=== PATIENT | male | born 1970 | race Hispanic/Latino ===

== ENCOUNTER 2025-04-19 09:41 | Emergency (ER) | payer BC ==
[~2025-04-19] VITALS: Ht 157.5 cm; Wt 81.6 kg
--- NOTE | 2025-04-19 10:11 | ERN ---
ED Note History of Present Illness Stated Complaint: ABD PAIN, NAUSEA, DIARRHEA Chief Complaint: Abdominal Pain Time Seen by MD: 09:57 Dictation: Patient is a 55-year-old male coming in today with complaints of periumbilical right lower quadrant pain tenderness with nausea onset yesterday. He has also had fever chills. No change in urination no flank pain no chest pain no back pain no SOB. States he went to a local urgent care to be seen today however it was too busy and came to the emergency room instead. No primary care doctor and denies any chronic comorbidities. He has not taken anything today prior to arrival for pain or fever Allergies: Coded Allergies: No Known Allergies (Unverified Allergy, Unknown, 04/19/25) Past Medical History Past Medical History: No Pertinent History Surgical History: None RN Note Reviewed/Agreed w/PFSH: Yes Review of System Dictation CONSTITUTIONAL: Negative except for HPI fever chills HEAD/FACE: Negative except for HPI EENT: Negative except for HPI RESPIRATORY: Negative except for HPI GASTROINTESTINAL/ABDOMINAL: Negative except for HPI periumbilical and right lower quadrant pain tenderness GENITOURINARY: Negative except for HPI MUSCULOSKELETAL: Negative except for HPI INTEGUMENTARY: Negative except for HPI NEUROLOGICAL/PSYCH: Negative except for HPI HEMATOLOGIC/LYMPHATIC: Negative except for HPI All Systems Negative, Except as noted above. 13 point review of systems assessed and all negative except for above. Initial Vital Sign VS Vital Signs Date Time Temp Pulse Resp B/P (MAP) Pulse Ox O2 Delivery O2 Flow Rate FiO2 04/19/25 09:43 101.5 112 20 131/79 95 Room Air 0 04/19/25 10:25 21 Physical Exam Dictation Vital Signs reviewed General Appearance: Alert, oriented x 3, monitor acute distress, well developed, nourished. Head and Face: non-traumatic. Eyes: PERRL, pink conjunctivas, eyelid no trauma, anterior chamber with arcus senilis. Ears: Pinnas intact and no signs of trauma or erythema ear canals clear and no discharge TM no erythema Nose: No discharge, no bleeding. Oropharynx: Mouth normal, tongue pink, pharynx clear,no erythema, tonsils no exudates, no abscesses noted, mucous membrane moist Neck: Supple, non-tender, no thyromegaly, no masses, no JVD, no bruits Breast:Deferred Chest:No tenderness, no crepitus, no paradoxical movement, no retractions Lungs:Clear, well-ventilated, symmetric, no rales, no wheezing, no rhonchi, no stridor, good breath sounds bilaterally Heart: Regular rate, regular rhythm, no murmur, no gallops Vascular: no peripheral edema, Abdomen: Soft, hypoactive bowel sounds with periumbilical right lower quadrant pain tenderness with palpation mild rebound to right lower quadrant. Negative CVAT bilaterally Rectal: Deferred Genital: Deferred Neurological: Normal speech, motor function intact, sensory function intact Musculoskeletal: Neck nontender, full range of motion, back nontender, full range of motion, Extremities: nontender, full range of motion Skin: Color pink, dry, no turgor, no rash, no lacerations, no abrasions, no contusions. Lymphatic: Deferred Results (Laboratory/Radiology) Laboratory/Radiology Laboratory Tests Test 04/19/25 10:00 White Blood Count 12.2 K/uL (4.8-10.8) H Red Blood Count 4.94 MIL/uL (4.50-6.20) Hemoglobin 14.9 g/dL (14.0-18.0) Hematocrit 43.7 % (42-54) Mean Corpuscular Volume 88.5 fL (79-99) Mean Corpuscular Hemoglobin 30.2 pg (27.0-33.0) Mean Corpuscular Hemoglobin Concent 34.1 g/dL (32.0-36.0) Red Cell Distribution Width 13.2 % (11.0-15.5) Platelet Count 218 K/uL (130-400) Mean Platelet Volume 11.2 fL (7.5-10.5) H Immature Granulocyte % (Auto) 0.6 % (0-1) Neutrophils (%) (Auto) 89.7 % (40.0-77.0) H Lymphocytes (%) (Auto) 5.3 % (21.0-51.0) L Monocytes (%) (Auto) 4.2 % (3.0-13.0) Eosinophils (%) (Auto) 0.0 % (0.0-8.0) Basophils (%) (Auto) 0.2 % (0.0-5.0) Neutrophils # (Auto) 10.9 K/uL (1.8-7.7) H Lymphocytes # (Auto) 0.6 K/uL (1.0-4.8) L Monocytes # (Auto) 0.5 K/uL (0.1-1.0) Eosinophils # (Auto) 0.00 K/uL (0.00-0.70) Basophils # (Auto) 0.02 K/uL (0.00-0.20) Absolute Immature Granulocyte (auto 0.07 K/uL (0-1) Nucleated Red Blood Cells 0.0 % (0.0-0.19) White Cell Morphology Comment See comments Sodium Level 138 mmol/L (136-145) Potassium Level 3.3 mmol/L (3.5-5.1) L Chloride Level 105 mmol/L (101-111) Carbon Dioxide Level 23 mmol/L (21-32) Blood Urea Nitrogen 9 mg/dL (7-18) Creatinine 0.8 mg/dL (0.5-1.3) Glomerular Filtration Rate Calc 104 mL/min (>90) Random Glucose 126 mg/dL (70-105) H Lactic Acid Level 1.7 mmol/L (0.8-2.5) Total Calcium 8.8 mg/dL (8.5-10.1) Lipase 25 U/L (16-77) IMAGING REPORT Signed PATIENT: HUMBERTO CONNOR MR#: [id number] : 1970 SEX: M AGE: 55 LOCATION: [facility] ORDER 1004 STATUS: REG REPORT#: [id number] SERVICE 1000 REASON: RLQ PAIN/TENDERNESS. FEVER ORDERING PHYSICIAN: NGUYEN WOLF NP PROCEDURE: ABD PEL W - CT ABDOMEN/PELVIS W/CONTRAST EXAM: CT Abdomen and Pelvis with IV contrast CLINICAL HISTORY: RLQ PAIN/TENDERNESS. FEVER TECHNIQUE: Axial computed tomography images of the abdomen and pelvis with intravenous contrast. CONTRAST: with intravenous contrast. COMPARISON: None provided. FINDINGS: LUNG BASES: The lung bases appear clear. No pleural effusions are seen. LIVER: Liver appears enlarged (16.2 cm) and diffusely hypodense, consistent with fatty infiltration. Unremarkable. GALLBLADDER AND BILE DUCTS: The gallbladder appears within normal limits. No radioopaque gallstones are seen. No biliary ductal dilatation is evident. PANCREAS: Unremarkable. SPLEEN: Unremarkable. ADRENAL GLANDS: Approximately 1.3 x 1.3 cm sized heterogenously enhancing lesion with internal fat and soft tissue density is seen in the stem of the right adrenal gland, possibility of adrenal myelolipoma appears likely. KIDNEYS, URETERS, AND BLADDER: Few small cortical cysts are seen in right kidney. The kidneys appear within normal limits. There is no hydronephrosis or hydroureter. No urinary calculi are seen. STOMACH AND BOWEL: The wall of the caecum, ascending colon and part of the transverse colon appears thickened and oedematous, measuring approximately 9-10 mm, consistent with colitis. Unremarkable appearance of the stomach. No evidence of bowel obstruction. APPENDIX: Normal appendix. PERITONEUM: No free fluid. No free air. LYMPH NODES: No lymphadenopathy is evident. REPRODUCTIVE: Marked prostatomegaly with heterogeneous enhancement (68 cc). Unremarkable as visualized. VASCULATURE: No evidence of abdominal aortic aneurysm. BONES: No aggressive appearing osseous lesion. No acute osseous pathology evident. IMPRESSION: 1. Thickened and edematous wall of cecum, ascending colon and part of transverse colon (9-10 mm), consistent with colitis. 2. Marked prostatomegaly (68 cc) with heterogeneous enhancement. 3. Fatty liver. /[facility] Labs Reviewed?: Yes ED Course ED Course Orders Procedure Category Date Status Time Cbc With Differential LAB 04/19/25 Complete 10:00 Blood Cult RAFFI 04/19/25 In Process 10:00 Urinalysis Profile LAB 04/19/25 Logged 10:00 Lactic Acid LAB 04/19/25 Complete 10:00 Basic Metabolic Panel LAB 04/19/25 Complete 10:00 Ct Abdomen/Pelvis CT 04/19/25 Resulted W/Contrast 10:00 0.9%Nacl 1000ml (Ns PHA 04/19/25 Complete 1000ml) 10:00 Morphine 2mg Syg PHA 04/19/25 Complete (Morphine 2mg Syg) 10:00 Ondansetron 4mg Inj PHA 04/19/25 Complete (Zofran 4mg Inj) 10:00 Lipase LAB 04/19/25 Complete 10:00 Potassium Bicarb/Cit PHA 04/19/25 Complete Ac 25meq (K-Lyte Ta 11:00 Iohexol (Omnipaque) PHA 04/19/25 Complete 11:05 Acetaminophen 500mg PHA 04/19/25 Complete Tab (Tylenol 500mg T 12:00 Zosyn 3.375gm+Ns 50ml PHA 04/19/25 Complete (Zosyn 3.375gm+Ns 12:30 Levofloxacin 500mg PHA 04/19/25 In Process Tab (Levaquin 500mg T 12:30 Metronidazole (Flagyl) PHA 04/19/25 Logged 12:30 Current Medications Medications (Trade) Dose Ordered Sig/Killian Route PRN Reason Start Time Stop Time Status Last Admin Dose Admin Acetaminophen (TYLenol 500MG TAB) 1,000 mg ONCE ONCE PO 04/19/25 12:00 04/19/25 12:01 DC Iohexol (Omnipaque) 75 ml STK-MED ONCE IV 04/19/25 11:05 04/19/25 11:05 DC Levofloxacin (LEvaquIN 500MG TAB) 500 mg ONCE PO 04/19/25 12:30 04/29/25 12:29 UNV Metronidazole (flaGYL) 500 mg ONCE PO 04/19/25 12:30 04/29/25 12:29 UNV Morphine Sulfate (morPHINE 2MG SYG) 2 mg ONCE ONCE IVP 04/19/25 10:00 04/19/25 10:10 DC 04/19/25 10:13 Ondansetron HCl (zoFRAN 4MG INJ) 4 mg ONCE ONCE IVP 04/19/25 10:00 04/19/25 10:10 DC 04/19/25 10:13 Piperacillin Sod/ Tazobactam Sod (Zosyn 3.375gm+NS 50ml) 3.375 gm ONCE ONCE IVPB 04/19/25 12:30 04/19/25 12:15 DC Potassium Bicarbonate (K-Lyte Tablet Eff 25 Meq Tablet.eff) 25 meq ONCE ONCE PO 04/19/25 11:00 04/19/25 11:01 DC 04/19/25 10:56 Sodium Chloride 1,000 ml @ 0 mls/hr ONCE ONCE IV 04/19/25 10:00 04/19/25 10:10 DC 04/19/25 10:13 Vital Signs Date Time Temp Pulse Resp B/P (MAP) Pulse Ox O2 Delivery O2 Flow Rate FiO2 04/19/25 11:41 101.7 93 12 119/66 97 Room Air* 0 21 04/19/25 10:25 102.4 108 19 118/80 96 Room Air* 0 21 04/19/25 09:43 101.5 112 20 131/79 95 Room Air 0 1215/SPOKE WITH PATIENT IN HIS DAUGHTER AT LENGTH AT BEDSIDE REGARDING TREATMENT PLAN. I ADVISED HIM I WOULD LIKE TO PUT HIM IN THE HOSPITAL IV ANTIBIOTICS HOWEVER HE STATES HE DOES NOT WANT TO STAY AND WISHES TO GO HOME. I GAVE HIM DIETARY GUIDELINES WE WILL GIVE HIM LEVAQUIN AND METRONIDAZOLE PRIOR TO DISCHARGED HOME HE WAS ADVISED TO BE ON CLEAR LIQUID DIET FOR THE NEXT 24 HOURS. FOLLOW UP WITH HIS PRIMARY CARE DOCTOR. Medical Decision Making MDM MDM: DIFFERENTIAL DIAGNOSIS: APPENDICITIS/DIVERTICULITIS/COLITIS/HER LUL/UTI/ELECTROLYTE IMBALANCE/DEHYDRATION/ RATIONALE: TESTS CONSIDERED AND ORDERED SECONDARY TO SHARED DECISION MAKING INCLUDE: SEPSIS LABS/RADIOLOGY PREVIOUS OUTSIDE RECORDS REVIEWED: OLD ER VISITS. RISK OF COMPLICATION AND/OR MORBIDITY OR MORTALITY OF PATIENT MANAGEMENT: NONE MEDICATIONS-PER MEDICATION RECONCILIATION NEED FOR HOSPITALIZATION: PATIENT DOES NOT MEET CRITERIA FOR HOSPITALIZATION. PATIENT REFUSED NEED FOR EMERGENCY MAJOR/MINOR SURGERY: NO THERE ARE NO SOCIAL CONCERNS WITH THIS PATIENT. PRESCRIPTION DRUG MANAGEMENT MOTRIN/LEVAQUIN/METRONIDAZOLE PRESCRIPTIONS WILL INCLUDE SYMPTOMATIC CARE PATIENT'S PRIOR EXTERNAL MEDICAL RECORDS FROM OTHER ER VISITS WERE REVIEWED BY ME INDICATED. PRIOR TESTING AND RESULTS FROM PREVIOUS VISITS WERE REVIEWED. PRIOR TESTS WERE TAKEN INTO ACCOUNT WITH MEDICAL DECISION MAKING AND RESOURCE UTILIZATION, INDEPENDENT HISTORIAN/HISTORIANS WERE USED TO OBTAIN COMPLETE MEDICAL HISTORY. I INDEPENDENTLY INTERPRETED THE TEST THAT WERE PERFORMED, RESULTS WERE REVIEWED BY ME AND CONSIDERED FINDINGS ON RADIOLOGY IF ORDERED. MEDICAL MANAGEMENT AND EXAMINATION INTERPRETATION DISCUSSIONS WERE HAD BY ME WITH OTHER QUALIFIED HEALTHCARE PROFESSIONALS INDICATED FOR THE PATIENT'S CARE. DX & DISP Disposition: Discharge Departure Impression: Primary Impression: Acute colitis Additional Impressions: Fever, Hypokalemia Condition: Stable Scripts Dicyclomine HCl (Bentyl) 20 Mg Tab 20 MG PO Q6HPRN PRN for ABDOMINAL PAIN/CRAMPING, #40 TAB Prov: NGUYEN WOLF DRUM BUILDER 04/19/25 Levofloxacin (Levofloxacin) 500 Mg Tablet 1 TAB PO DAILY for 7 Days, #7 TAB 0 Refills Prov: NGUYEN WOLF DRUM BUILDER 04/19/25 Metronidazole (Metronidazole) 500 Mg Tablet 1 TAB PO TID for 7 Days, #21 TAB 0 Refills Prov: NGUYEN WOLF DRUM BUILDER 04/19/25 Referrals: SELF,REFERRAL (PCP) Time of Disposition: 12:18 I have reviewed the case, and I agree with, Diagnosis and Plan NGUYEN WOLF NP Apr 19, 2025 10:11
[2025-04-19] MEDS: 0.9%NACL 1000ML 1,000 ML IV ONE (10:13)
[2025-04-19 10:18] LABS: IMMATURE GRANULOCYTE ABSOLUTE 0.07 K/uL (0-1); NUCLEATED RED BLOOD CELLS 0.0 % (0.0-0.19); PLATELET COUNT (AUTO) 218 K/uL (130-400); RED BLOOD CELL COUNT(AUTO) 4.94 MIL/uL (4.50-6.20); RED CELL DISTRIBUTION WIDTH 13.2 % (11.0-15.5); WHITE BLOOD COUNT (AUTO) 12.2 K/uL (4.8-10.8)
[2025-04-19 10:31] LABS: CREATININE 0.8 mg/dL (0.5-1.3); GLOMERULAR FILTR. RATE CALC 104.0 mL/min (>90); GLUCOSE,RANDOM 126.0 mg/dL (70-105); SODIUM SERUM 138.0 mmol/L (136-145); UREA NITROGEN, BLOOD 9.0 mg/dL (7-18)
[2025-04-19] MEDS ORDERED: IOHEXOL-350 75 ML VIAL IV ONE (11:05)
--- NOTE | 2025-04-19 11:58 | HMCIMG ---
EXAM: CT Abdomen and Pelvis with IV contrast CLINICAL HISTORY: RLQ PAIN/TENDERNESS. FEVER TECHNIQUE: Axial computed tomography images of the abdomen and pelvis with intravenous contrast. CONTRAST: with intravenous contrast. COMPARISON: None provided. FINDINGS: LUNG BASES: The lung bases appear clear. No pleural effusions are seen. LIVER: Liver appears enlarged (16.2 cm) and diffusely hypodense, consistent with fatty infiltration. Unremarkable. GALLBLADDER AND BILE DUCTS: The gallbladder appears within normal limits. No radioopaque gallstones are seen. No biliary ductal dilatation is evident. PANCREAS: Unremarkable. SPLEEN: Unremarkable. ADRENAL GLANDS: Approximately 1.3 x 1.3 cm sized heterogenously enhancing lesion with internal fat and soft tissue density is seen in the stem of the right adrenal gland, possibility of adrenal myelolipoma appears likely. KIDNEYS, URETERS, AND BLADDER: Few small cortical cysts are seen in right kidney. The kidneys appear within normal limits. There is no hydronephrosis or hydroureter. No urinary calculi are seen. STOMACH AND BOWEL: The wall of the caecum, ascending colon and part of the transverse colon appears thickened and oedematous, measuring approximately 9-10 mm, consistent with colitis. Unremarkable appearance of the stomach. No evidence of bowel obstruction. APPENDIX: Normal appendix. PERITONEUM: No free fluid. No free air. LYMPH NODES: No lymphadenopathy is evident. REPRODUCTIVE: Marked prostatomegaly with heterogeneous enhancement (68 cc). Unremarkable as visualized. VASCULATURE: No evidence of abdominal aortic aneurysm. BONES: No aggressive appearing osseous lesion. No acute osseous pathology evident. IMPRESSION: 1. Thickened and edematous wall of cecum, ascending colon and part of transverse colon (9-10 mm), consistent with colitis. 2. Marked prostatomegaly (68 cc) with heterogeneous enhancement. 3. Fatty liver. /[place]
[2025-04-19] MEDS ORDERED: METR-172 PO (12:19)
[2025-04-19] MEDS ORDERED: DICY20TA2 PO (12:19)
[2025-04-19] MEDS ORDERED: LEVO-70 PO (12:19)
[2025-04-19] MEDS ORDERED: ZOSYN 3.375GM +NS 50ML IVPB ONE (12:30)
[2025-04-19 13:00] VITALS: BP 102/56; PULSE 98; RESP 16; TEMP 99.6; O2SAT 96
--- NOTE | 2025-04-19 13:04 | NUR ---
DC PATIENT WAS DC'D BY NGUYEN WOLF DISABILITY SERVICES COORDINATOR TODAY I DC'D PATIENTS IV WITH CATH STILL INTACT AND APPLIED 2X2 GAUZE WITH COBAN, I EXPLAINED TO PATIENT TO FOLLOW UP WITH PCP, EXPLAINED NEW PRESCRIPTIONS AND HOW TO TAKE THEM, AND PROVIDED INFO BASED ON DIAGNOSIS, I ANSWERED ANY FOLLOW UP WITH QUESTIONS THE PATIENT HAD, PATIENT AMBULATED OUT OF ED, NO COMPLICATIONS
[2025-04-19 13:47] LABS: APPEARANCE,URINE CLEAR (CLEAR); GLUCOSE, URINE (UA) NEGATIVE (NEGATIVE); LEUKOCYTE ESTERASE ,URINE NEGATIVE Leu/uL (NEGATIVE); NITRATE,URINE NEGATIVE (NEGATIVE); OCCULT BLOOD,URINE NEGATIVE (NEGATIVE)
[2025-04-19 13:51] LABS: ADD UA MICROSCOPIC NO
== END 2025-04-19 13:00 | disposition home or self-care (01) ==
LOC: EDH 09:41
DX: K52.9 Noninfective gastroenteritis and colitis, unspecified (principal); R50.9 Fever, unspecified; E87.6 Hypokalemia
CPT/HCPCS: 99284; 74177; 96374; 96361; 96375; 80048; 83690; 85025; 87040 ×2; 83605; 81003; 36415; J2270; J7030; J2405; Q9967